=== PATIENT | female | born 1960 | race Caucasian/White ===

== ENCOUNTER → 2018-06-19 | Outpatient (CLI) | payer BC ==
[~2018-06-19] MED LIST: CONTRAST GIVEN. MC PRN; IOHEXOL 300 MG/ML 50 ML VIAL. IT ONE; LIDOCAINE WITH 8.4% SOD BICARB 3 ML DISP.SYRIN. INJ ONE
--- NOTE | 2018-06-19 15:03 | RAD ---
Thoracolumbar myelogram, 06/19/2018: History: Low back and bilateral extremity pain Under local anesthesia, aseptic conditions and fluoroscopic guidance a lumbar puncture was performed at the upper L2 level utilizing a 25-gauge Shimon spinal needle. Good clear CSF flow was obtained following which 12 cc of Omnipaque 300 was injected into the thecal sac. The spinal needle was then removed and hemostasis obtained. Appropriate digital imaging of the thoracic and lumbar spine was then performed. The patient tolerated the procedure well and was sent to CT in good condition. 7.2 minutes of fluoroscopy time was utilized. 20 fluoroscopic spot images were recorded. The following findings were delineated on the myelogram: 1. There are bilateral pedicle screws at L4 and L5 attached to longitudinally oriented posterior fixation rods. A radiopaque disc spacer is present at L4-5. 2. Mild anterior and posterior extradural defects are present at the L2-3 and L3-4 disc levels without significant central spinal stenosis. 3. Lateral flexion and extension views show no significant lumbar spine instability. 4. There is symmetric opacification of the lower lumbar nerve root sleeves. 5. Spinal stimulator leads enter the spinal canal at the L1-2 level and extend to the lower T9 level. 6. There are minimal anterior extradural defects at T10-11 and T11-12. 7. No significant central spinal stenosis is evident in the thoracic spine. CT of the thoracolumbar spine-post myelogram, 06/19/2018: Multidetector CT imaging was performed with multiplanar reconstructions produced. The following findings are delineated: 1. There are mild scattered spurs in the thoracic spine with endplate irregularity and Schmorl's nodes at several levels in the mid and lower thoracic spine. 2. There are minimal anterior extradural defects at several levels in the lower thoracic spine due to slight annular bulges. There is a small right posterolateral disc protrusion at T7-8. 3. There is no evidence of significant central spinal stenosis. The thoracic cord shows no intrinsic abnormality. 4. Spinal stimulator leads enter the upper lumbar spinal canal just to the right of midline at L1-2 and extend superiorly along the posterior aspect of the thecal sac with their tips lying in the posterior epidural space just to the left of midline at the lower T9 level. 5. At L2-3 there is mild posterior disc bulging. The central spinal canal and neural foramina are well maintained. 6. At L3-4 there is mild broad-based posterior disc bulging. The central spinal canal and neural foramina are well maintained. 7. Posterior fixation rods and pedicle screws at L4-5 as well as the radiopaque disc spacer create artifacts degrading image quality through that region. There is a laminectomy defect on the left. The L4-5 facet joints appear to have been partially resected. The central spinal canal and right neural neuroforamen are widely patent. There is moderate spurring within the inferior aspect of the left neural foramen at L4-5. 8. At L5-S1 there are mild degenerative changes involving the facet joints. No disc bulge or protrusion is seen. The central spinal canal and neural foramina are well maintained. 9. Incidental note is made of a small hiatal hernia. IMPRESSION: 1. Mild scattered degenerative change as described above. 2. Spinal stimulator leads extend into the lower thoracic spinal canal with their tips at the lower T9 level. 3. Small right posterolateral disc protrusion at T7-8. 4. Small posterior disc bulges at L2-3 and L3-4. 5. Postsurgical changes with instrumentation at L4-5 with no significant central spinal stenosis. PQRS Compliance Statement: One or more of the following individualized dose reduction techniques were utilized for this examination: 1. Automated exposure control 2. Adjustment of the mA and/or kV according to patient size 3. Use of iterative reconstruction technique
== END | disposition home or self-care (01) ==
LOC: RAD 13:43
PROVIDERS: ATTEND Neurological Surgery
DX: M51.24 Other intervertebral disc displacement, thoracic region (principal); M51.44 Schmorl's nodes, thoracic region; K44.9 Diaphragmatic hernia without obstruction or gangrene; M47.896 Other spondylosis, lumbar region; Z98.890 Other specified postprocedural states
CPT/HCPCS: 72129; 72132; 72270; Q9967

== ENCOUNTER → 2018-07-16 | Outpatient (CLI) | payer BC ==
[~2018-07-16] MED LIST changes: +ALEN70TA3 PO; +ASPI81TA50 PO; +ATOR10TA PO; +Bisacodyl Supp PR; +CHOL4POW11 PO; +CHOL500016 PO; -CONTRAST GIVEN. MC PRN; +CYAN10005 PO; +DIPH25CA58 PO; +ESZO3TAB28 PO; +FERR325T72 PO; +FEXO180T81 PO; +FURO-68 PO; +GABA300C8 PO; -IOHEXOL 300 MG/ML 50 ML VIAL. IT ONE; -LIDOCAINE WITH 8.4% SOD BICARB 3 ML DISP.SYRIN. INJ ONE; +LOSA25TA PO; +METH750T2 PO; +OMEP20TA63 PO; +OXYC-328 PO; +OXYC15TA60 PO; +POLY17PO3 PO; +POTA10TA12 PO; +SENN-22 PO; +SERT25TA PO; +SULF500T PO; +VIT1TABL PO
[2018-07-16 14:45] LABS: BASO % 1 % (0-3); EOS # 0.1 x10^3/uL (0.0-0.7); EOS % 1 % (0-3); HEMATOCRIT 37.2 % (36.0-47.0); HEMOGLOBIN 12.4 g/dL (12.0-15.5); LYMPH # 2.2 x10^3/uL (1.0-4.8); LYMPH % 37 % (24-48); MEAN CORPUSCULAR HEMOGLOBIN 30 pg (25-35); MEAN CORPUSCULAR HGB CONC 33 g/dL (31-37); MEAN CORPUSCULAR VOLUME 90 fL (79-100); MONO # 0.5 x10^3/uL (0.0-1.1); MONO % 9 % (0-9); NEUT # 3.1 x10^3uL (1.8-7.7); NEUT % 52 % (31-73); PLATELET COUNT 289 x10^3/uL (140-400); RED BLOOD COUNT 4.16 x10^6/uL (3.50-5.40); RED CELL DISTRIBUTION WIDTH 14.8 % (11.5-14.5); WHITE BLOOD COUNT 5.9 x10^3/uL (4.0-11.0)
[2018-07-16 14:53] LABS: PROTHROMBIN TIME PATIENT 13.2 SEC (11.7-14.0)
[2018-07-16 15:25] LABS: ALBUMIN 3.3 g/dL (3.4-5.0); ALBUMIN/GLOBULIN RATIO 0.9 (1.0-1.7); CALCIUM 8.6 mg/dL (8.5-10.1); CREATININE 0.9 mg/dL (0.6-1.0); GFR 64.1; POTASSIUM 3.2 mmol/L (3.5-5.1); TOTAL BILIRUBIN 0.3 mg/dL (0.2-1.0); TOTAL PROTEIN 6.9 g/dL (6.4-8.2)
--- NOTE | 2018-07-16 16:10 | RAD ---
AP and Lateral Views of the Chest 07/16/2018 1:48 PM Indication: PRE-OP FOR BACK SURGERY Comparison: None available Findings: There is no focal consolidation or infiltrate identified. Heart size is normal. There is no evidence of pneumothorax or pleural effusion. No acute osseous abnormalities are identified. Right shoulder arthroplasty noted. Dorsal column stimulator appears to be in place. Degenerative changes of the thoracic spine noted. Impression: No evidence of acute cardiopulmonary process. Electronically signed by: Gabriel Malagon MD (07/16/2018 4:07 PM) [id number]
== END | disposition home or self-care (01) ==
LOC: SURGPAT 13:17
PROVIDERS: ATTEND Neurological Surgery
DX: Z01.818 Encounter for other preprocedural examination (principal); M51.34 Other intervertebral disc degeneration, thoracic region
CPT/HCPCS: 36415; 71046; 80053; 85025; 85610; 85730; 87641